=== PATIENT | female | born 1995 | race Caucasian/White ===

== ENCOUNTER 2017-10-02 22:39 | Emergency (ER) | payer OTHER ==
[2017-10-02 23:01] VITALS: PULSE 78
--- NOTE | 2017-10-02 23:39 | ED ---
General Adult HPI - General Chief complaint: Extremity Injury, Upper Stated complaint: Hand Injury, [facility] Time Seen by Provider: 10/02/17 23:02 Source: patient, RN notes reviewed Mode of arrival: ambulatory Limitations: no limitations - History of Present Illness Initial comments: 21 yo female presents to the ER with cc of right hand pain. Patient smashed her hand on a part trying to fix a part Her hand got smashed in his pain in the right hand. Worse today for the second and third finger. Patient has now some mild swelling. Pain with movement. Patient denies any other injury from the incident. Patient is moderately no radiation. Patient denies any recent fever, chills, shortness of breath, chest pain, back pain, abdominal pain, nausea vomiting, numbness or tingling, dysuria or hematuria, constipation or diarrhea, headaches or visual changes, or any other current symptoms. - Related Data Home Medications Medication Instructions Recorded Confirmed Levothyroxine Sodium [Synthroid] 100 mcg PO DAILY 10/02/17 10/02/17 Multivitamin [Multivitamins Adult 1 tab PO DAILY 10/02/17 10/02/17 Gummies] Allergies Allergy/AdvReac Type Severity Reaction Status Date / Time latex Allergy Rash/Hives Verified 10/02/17 23:16 Review of Systems ROS Statement: Those systems with pertinent positive or pertinent negative responses have been documented in the HPI. ROS Other: All systems not noted in ROS Statement are negative. Past Medical History Past Medical History: No Reported History History of Any Multi-Drug Resistant Organisms: None Reported Past Surgical History: No Surgical Hx Reported Past Psychological History: No Psychological Hx Reported Smoking Status: Never smoker Past Alcohol Use History: None Reported Past Drug Use History: None Reported General Exam - General Exam Comments Initial Comments: General: The patient is awake and alert, in no distress, and does not appear acutely ill. Neck: The neck is supple, there is no tenderness. Cardiovascular: There is a regular rate and rhythm. No murmur, rub or gallop is appreciated. Respiratory: Lungs are clear to auscultation, respirations are non-labored, breath sounds are equal. No wheezes, stridor, rales, or rhonchi. Musculoskeletal: Sensation intact with 2+ pulses throughout the right upper extremity. Full range motion of right wrist. Tenderness along the second and third metacarpals. Full range of motion. 5 out of 5 muscle strength testing. Neurological: CN II-XII intact, There are no obvious motor or sensory deficits. Coordination appears grossly intact. Speech is normal. Skin: Skin is warm and dry and no rashes or lesions are noted. Psychiatric: Normal mood and affect. Limitations: no limitations Course Vital Signs 10/02/17 22:58 Temperature 98.2 F Pulse Rate 78 Respiratory 18 Rate Blood Pressure 125/78 O2 Sat by Pulse 98 Oximetry Medical Decision Making - Medical Decision Making 21-year-old female presents emergency Department chief complaint of right hand pain after injury at work. Patient patient appears to right hand contusion. This time we discussed care. We discussed follow-up. We discussed return parameters all questions. Patient family stated they understood and are in agreement with management at this time. At this time they will be discharged home. - Radiology Data Radiology results: report reviewed, image reviewed Disposition Clinical Impression: Contusion of right hand Disposition: HOME SELF-CARE Condition: Stable Instructions: Contusion in Adults (ED) Additional Instructions: Please use medication as discussed. Please follow up with family doctor if symptoms have not improved over the next two days. Please return to the emergency room if your symptoms increase or worsen or for any other concerns. Referrals: Joesph Narvaez MD [Primary Care Provider] - 1-2 days Time of Disposition: 00:39
--- NOTE | 2017-10-03 00:30 | XR ---
EXAMINATION TYPE: XR hand complete RT DATE OF EXAM: 10/03/2017 COMPARISON: NONE HISTORY: Pain TECHNIQUE: 3 views FINDINGS: Metacarpals appear intact. I see no fracture nor dislocation. There are no erosions. IMPRESSION: Negative right hand exam
[2017-10-03 00:51] VITALS: BP 138/85; RESP 16; TEMP 97.9
== END 2017-10-03 00:45 | disposition home or self-care (01) ==
LOC: EC 22:39
DX: S60.221A Contusion of right hand, initial encounter (principal); Z91.040 Latex allergy status; Z79.899 Other long term (current) drug therapy; W22.09XA Striking against other stationary object, initial encounter; Y99.0 Civilian activity done for income or pay; Y92.69 Other specified industrial and construction area as the place of occurrence of the external cause
CPT/HCPCS: 99283

== ENCOUNTER → 2017-10-11 | Outpatient (CLI) | payer OTHER ==
--- NOTE | 2017-10-11 16:26 | XR ---
EXAMINATION TYPE: XR hand complete RT DATE OF EXAM: 10/11/2017 COMPARISON: NONE HISTORY: 22 year-old female right hand contusion second through third digits after injury TECHNIQUE: 3 views FINDINGS: No acute fracture, subluxation, or dislocation. Joint spaces throughout are maintained. IMPRESSION: No acute osseous abnormality seen.
== END | disposition home or self-care (01) ==
LOC: LABWHC1 15:37
PROVIDERS: ATTEND Emergency Medicine
DX: S60.221D Contusion of right hand, subsequent encounter (principal)
CPT/HCPCS: 81025

== ENCOUNTER → 2018-07-13 | Outpatient (CLI) | payer BC ==
--- NOTE | 2018-07-13 07:49 | US ---
EXAMINATION TYPE: US thyroid st tissue head/neck DATE OF EXAM: 07/13/2018 COMPARISON: NONE CLINICAL HISTORY: E03.9 HYPOTHYROIDISM. GLAND SIZE: Right Lobe: 3.7x1.6 x 1.3 cm Overall Parenchyma: homogenous Left Lobe: 3.8 x 1.2 x 1.2 cm Overall Parenchyma: heterogeneous slightly Isthmus Thickness: 0.4 cm NODULES RIGHT: # of nodules measured on right: 0 LEFT: # of nodules measured on left: 2 1. 0.7 X 0.6 x 0.4 cm isoechoic nodule at the mid pole with well-defined margins; . This nodule is round and shows no intranodular vascularity. Prior size: no prior 2. 0.3 X 0.4 x 0.6 cm isoechoic nodule at the lower pole with well-defined margins; This nodule is round and shows no intranodular vascularity. Prior size: no prior ISTHMUS: # of nodules measured in the isthmus: 0 Bilateral neck scanned, no evidence of lymphadenopathy. IMPRESSION: Nonspecific subcentimeter nodularity.
== END ==
LOC: RADUSWWP 06:54
PROVIDERS: ATTEND Family Medicine
DX: E03.9 Hypothyroidism, unspecified (principal)
CPT/HCPCS: 76536

== ENCOUNTER 2020-04-22 09:05 | Emergency (ER) | payer BC ==
--- NOTE | 2020-04-22 09:48 | ED ---
Abdominal Pain HPI - General Chief Complaint: Abdominal Pain Stated Complaint: right abd pain Time Seen by Provider: 04/22/20 09:12 Source: patient Mode of arrival: ambulatory Limitations: no limitations - History of Present Illness Initial Comments: 24-year-old female presented for right upper quadrant abdominal pain she states on and off for the past week she has had for upper quadrant abdominal pain she states initially began after eating beans are made with large. She states she has noticed slight increase in pain that has been more mild over the past 2 weeks when eating fatty foods. Patient denies any other specific aggravating factors. She denies any nausea vomiting or loose stools today as a bloody stools. Patient states the pain radiates along the flank towards the back. She denies any chest pain shortness of breath or pain with deep inspiration. Patient was concerned that this could possibly related to her gallbladder presented today when pain returned as been more persistent. Patient denies fevers, chills, general malaise. Patient has no additional complaints. - Related Data Home Medications Medication Instructions Recorded Confirmed Escitalopram [Lexapro] 20 mg PO DAILY 04/22/20 04/22/20 Hydrochlorothiazide 12.5 mg PO DAILY 04/22/20 04/22/20 Levothyroxine Sodium 88 mcg PO DAILY 04/22/20 04/22/20 Melatonin 5 mg PO HS PRN 04/22/20 04/22/20 Polyethylene Glycol 3350 [Miralax] 17 gm PO DAILY PRN 04/22/20 04/22/20 Allergies Allergy/AdvReac Type Severity Reaction Status Date / Time amoxicillin [From Augmentin] Allergy Rash/Hives Verified 04/22/20 10:52 latex Allergy Rash/Hives Verified 04/22/20 09:10 Review of Systems ROS Statement: Those systems with pertinent positive or pertinent negative responses have been documented in the HPI. ROS Other: All systems not noted in ROS Statement are negative. Past Medical History Past Medical History: No Reported History History of Any Multi-Drug Resistant Organisms: None Reported Past Surgical History: No Surgical Hx Reported Additional Past Surgical History / Comment(s): wisdom teeth Past Psychological History: No Psychological Hx Reported Smoking Status: Never smoker Past Alcohol Use History: Occasional Past Drug Use History: None Reported General Exam - General Exam Comments Initial Comments: General: The patient is awake and alert, in no distress, and does not appear acutely ill. Eye: Pupils are equal, round and reactive to light, extra-ocular movements are intact. No nystagmus. There is normal conjunctiva bilaterally. No signs of icterus. Cardiovascular: There is a regular rate and rhythm. No murmur, rub or gallop is appreciated. Respiratory: Lungs are clear to auscultation, respirations are non-labored, breath sounds are equal. No wheezes, stridor, rales, or rhonchi. Gastrointestinal: Soft, non-distended, some mild tenderness to palpation of the RUQ of the abdomen, remaining abdomen in nontender and is without masses or organomegaly noted. There is no rebound or guarding present Musculoskeletal: Normal ROM, no tenderness. Strength 5/5. Sensation intact. Radial pulses equal bilaterally 2+. Neurological: A&O x 3. CN II-XII intact grossly, There are no obvious motor or sensory deficits. Coordination appears grossly intact. Speech is normal. Skin: Skin is warm and dry and no rashes or lesions are noted. Psychiatric: Cooperative, appropriate mood & affect, normal judgment. Limitations: no limitations Course Vital Signs 04/22/20 04/22/20 04/22/20 09:06 10:41 11:30 Temperature 98.4 F Pulse Rate 67 64 57 L Respiratory 18 16 16 Rate Blood Pressure 142/88 120/85 118/79 O2 Sat by Pulse 96 97 99 Oximetry Medical Decision Making - Medical Decision Making 24-year-old female presenting today for chief complaint of right upper quadrant abdominal pain. NEGATIVE FOR ACUTE CHOLECYSTITIS OR CHOLELITHIASIS. PATIENT'S LABORATORY STUDIES STABLE NO ACUTE FINDINGS NO SIGNS OF PANCREATITIS. CT OBTAINED TO RULE OUT KIDNEY STONE THERE IS blood in urine although pt states she frequently spots. There was noted pelvic mass. US pelvic revealed what appeared to be most likely physiological status. Patient has no lower pelvic pain at this time feel patient is stable for discharge or GI follow-up she may need HIDA scan to ensure, but her spelled function properly other baer at this time and do not feel patient has an acute abdomen patient is to return if there is increasing pain or new symptoms. Patient is aware of these return parameters as well as the importance of follow-up for cyst as well as with gastroenterology for the right upper quadrant pain. Discussed case with Dr. Barba who is agreeable to care plan and discharge. - Lab Data Result diagrams: 04/22/20:50 04/22/20 10:14 Lab Results 04/22/20 04/22/20 04/22/20 Range/Units 09:20 09:20 09:50 WBC 7.9 (3.8-10.6) k/uL RBC 4.66 (3.80-5.40) m/uL Hgb 13.7 (11.4-16.0) gm/dL Hct 42.4 (34.0-46.0) % MCV 91.0 (80.0-100.0) fL MCH 29.4 (25.0-35.0) pg MCHC 32.4 (31.0-37.0) g/dL RDW 12.5 (11.5-15.5) % Plt Count 426 (150-450) k/uL Neutrophils % 71 % Lymphocytes % 19 % Monocytes % 5 % Eosinophils % 4 % Basophils % 1 % Neutrophils # 5.6 (1.3-7.7) k/uL Lymphocytes # 1.5 (1.0-4.8) k/uL Monocytes # 0.4 (0-1.0) k/uL Eosinophils # 0.3 (0-0.7) k/uL Basophils # 0.1 (0-0.2) k/uL Sodium (137-145) mmol/L Potassium (3.5-5.1) mmol/L Chloride (98-107) mmol/L Carbon Dioxide (22-30) mmol/L Anion Gap mmol/L BUN (7-17) mg/dL Creatinine (0.52-1.04) mg/dL Est GFR (CKD-EPI)AfAm (>60 ml/min/1.73 sqM) Est GFR (CKD-EPI)NonAf (>60 ml/min/1.73 sqM) Glucose (74-99) mg/dL Calcium (8.4-10.2) mg/dL Total Bilirubin (0.2-1.3) mg/dL AST (14-36) U/L ALT (4-34) U/L Alkaline Phosphatase (38-126) U/L Total Protein (6.3-8.2) g/dL Albumin (3.5-5.0) g/dL Amylase (30-110) U/L Lipase (23-300) U/L Urine Color Yellow Urine Appearance Clear (Clear) Urine pH 5.5 (5.0-8.0) Ur Specific [place] 1.030 (1.001-1.035) Urine Protein Negative (Negative) Urine Glucose (UA) Negative (Negative) Urine Ketones Negative (Negative) Urine Blood Moderate H (Negative) Urine Nitrite Negative (Negative) Urine Bilirubin Negative (Negative) Urine Urobilinogen <2.0 (<2.0) mg/dL Ur Leukocyte Esterase Trace H (Negative) Urine RBC 1 (0-5) /hpf Urine WBC 3 (0-5) /hpf Ur Squamous Epith Cells 3 (0-4) /hpf Urine Bacteria Occasional H (None) /hpf Urine Mucus Moderate H (None) /hpf Urine HCG, Qual Not Detected (Not Detectd) 04/22/20 Range/Units 10:14 WBC (3.8-10.6) k/uL RBC (3.80-5.40) m/uL Hgb (11.4-16.0) gm/dL Hct (34.0-46.0) % MCV (80.0-100.0) fL MCH (25.0-35.0) pg MCHC (31.0-37.0) g/dL RDW (11.5-15.5) % Plt Count (150-450) k/uL Neutrophils % % Lymphocytes % % Monocytes % % Eosinophils % % Basophils % % Neutrophils # (1.3-7.7) k/uL Lymphocytes # (1.0-4.8) k/uL Monocytes # (0-1.0) k/uL Eosinophils # (0-0.7) k/uL Basophils # (0-0.2) k/uL Sodium 139 (137-145) mmol/L Potassium 4.5 (3.5-5.1) mmol/L Chloride 108 H (98-107) mmol/L Carbon Dioxide 24 (22-30) mmol/L Anion Gap 7 mmol/L BUN 12 (7-17) mg/dL Creatinine 0.53 (0.52-1.04) mg/dL Est GFR (CKD-EPI)AfAm >90 (>60 ml/min/1.73 sqM) Est GFR (CKD-EPI)NonAf >90 (>60 ml/min/1.73 sqM) Glucose 102 H (74-99) mg/dL Calcium 9.4 (8.4-10.2) mg/dL Total Bilirubin 0.4 (0.2-1.3) mg/dL AST 26 (14-36) U/L ALT 21 (4-34) U/L Alkaline Phosphatase 45 (38-126) U/L Total Protein 7.2 (6.3-8.2) g/dL Albumin 4.1 (3.5-5.0) g/dL Amylase 52 (30-110) U/L Lipase 50 (23-300) U/L Urine Color Urine Appearance (Clear) Urine pH (5.0-8.0) Ur Specific [place] (1.001-1.035) Urine Protein (Negative) Urine Glucose (UA) (Negative) Urine Ketones (Negative) Urine Blood (Negative) Urine Nitrite (Negative) Urine Bilirubin (Negative) Urine Urobilinogen (<2.0) mg/dL Ur Leukocyte Esterase (Negative) Urine RBC (0-5) /hpf Urine WBC (0-5) /hpf Ur Squamous Epith Cells (0-4) /hpf Urine Bacteria (None) /hpf Urine Mucus (None) /hpf Urine HCG, Qual (Not Detectd) Disposition Clinical Impression: Upper abdominal pain, Ovarian cyst Disposition: HOME SELF-CARE Condition: Good Instructions (If sedation given, give patient instructions): Ovarian Cyst (ED), Abdominal Pain (ED) Additional Instructions: Please use medication as discussed. Please follow-up with family doctor in the next 2 days, recommend obgyn follow-up for the ovarian cyst. Please return to emergency room if the symptoms increase or worsen or for any other concerns. Is patient prescribed a controlled substance at d/c from ED?: No Referrals: Alberto Caraballo MD [Primary Care Provider] - 1-2 days Shell Cantrell MD [STAFF PHYSICIAN] - 1-2 days Time of Disposition: 12:07
[2020-04-22 09:52] LABS: Appearance,Urine Clear (Clear); Bacteria,Urine Occasional /hpf; Bilirubin,Urine Negative (Negative); Blood,Urine Moderate (Negative); Color,Urine Yellow; Glucose,Urine (UA) Negative (Negative); Ketones,Urine Negative (Negative); Leukocyte Esterase,Urine Trace (Negative); Mucus,Urine Moderate /hpf; Nitrite,Urine Negative (Negative); PH, Urine 5.5 (5.0-8.0); Protein,Urine Negative (Negative); RBC,Urine 1 /hpf (0-5); Squamous Epithelial Cell,Urine 3 /hpf (0-4); Urobilinogen,Urine <2.0 mg/dL (<2.0); WBC,Urine 3 /hpf (0-5)
[2020-04-22 10:01] LABS: Basophils # (A) 0.1 k/uL (0-0.2); Basophils % (A) 1 %; Eosinophils # (A) 0.3 k/uL (0-0.7); Eosinophils % (A) 4 %; HCT 42.4 % (34.0-46.0); HGB 13.7 gm/dL (11.4-16.0); Lymphocytes # (A) 1.5 k/uL (1.0-4.8); Lymphocytes % (A) 19 %; MCH 29.4 pg (25.0-35.0); MCHC 32.4 g/dL (31.0-37.0); Monocytes # (A) 0.4 k/uL (0-1.0); Monocytes % (A) 5 %; Neutrophils # (A) 5.6 k/uL (1.3-7.7); Neutrophils % (A) 71 %; Platelet Count 426 k/uL (150-450); RBC 4.66 m/uL (3.80-5.40); RDW 12.5 % (11.5-15.5); WBC 7.9 k/uL (3.8-10.6)
--- NOTE | 2020-04-22 10:38 | US ---
EXAMINATION TYPE: US abdomen limited DATE OF EXAM: 04/22/2020 COMPARISON: NONE CLINICAL HISTORY: RUQ pain. Intermittent RUQ pain x 1 month EXAM MEASUREMENTS: Liver Length: 15.4 cm Gallbladder Wall: 0.1 cm CBD: 0.3 cm Right Kidney: 9.5 x 4.4 x 4.2 cm Pancreas: visualized portions wnl, limited by overlying midline bowel gas Liver: wnl Gallbladder: wnl Evidence for sonographic Valentin's sign: no CBD: visualized portions wnl, limited by overlying bowel gas Right Kidney: wnl IMPRESSION: No sonographic evidence of cholelithiasis nor acute cholecystitis.
[2020-04-22 10:41] LABS: ALT 21 U/L (4-34); African American GFR (CKD) >90 (>60 ml/min/1.73 sqM); Albumin 4.1 g/dL (3.5-5.0); Amylase 52 U/L (30-110); Anion Gap 7 mmol/L; Blood Urea Nitrogen 12 mg/dL (7-17); Calcium 9.4 mg/dL (8.4-10.2); Carbon Dioxide 24 mmol/L (22-30); Chloride 108 mmol/L (98-107); Glucose 102 mg/dL (74-99); Non-African American GFR(CKD) >90 (>60 ml/min/1.73 sqM); Sodium 139 mmol/L (137-145); Total Bilirubin 0.4 mg/dL (0.2-1.3); Total Protein 7.2 g/dL (6.3-8.2)
[2020-04-22 10:42] VITALS: RESP 16
[2020-04-22 10:44] LABS: Potassium 4.5 mmol/L (3.5-5.1)
[2020-04-22 10:45] LABS: AST 26 U/L (14-36); Alkaline Phosphatase 45 U/L (38-126)
--- NOTE | 2020-04-22 11:13 | CT ---
EXAMINATION TYPE: CT abdomen pelvis wo con DATE OF EXAM: 04/22/2020 COMPARISON: Ultrasound 04/22/2020 HISTORY: Right flank pain. CT DLP: 613.3 mGycm Automated exposure control for dose reduction was used. TECHNIQUE: Helical acquisition of images was performed from the lung bases through the pelvis. FINDINGS: LUNG BASES: No significant abnormality is appreciated. LIVER/GB: No significant abnormality is appreciated. PANCREAS: No significant abnormality is seen. SPLEEN: No significant abnormality is seen. ADRENALS: No significant abnormality is seen. KIDNEYS: No significant abnormality is seen. ADENOPATHY: None visualized. OSSEOUS STRUCTURES: No significant abnormality is seen. BOWEL: Nonspecific abdomen. Appendix normal.. OTHER: There is a 4.3 cm cystic mass in the right adnexa correlate with pelvic ultrasound. IMPRESSION: 1. There is a 4.3 cm cystic mass in the right adnexa correlate with pelvic ultrasound.
--- NOTE | 2020-04-22 12:03 | US ---
EXAMINATION TYPE: US pelvic complete DATE OF EXAM: 04/22/2020 COMPARISON: 04/22/2020 CT CLINICAL HISTORY: pelvic mass. TECHNIQUE: Transabdominal (TA). Date of LMP: Patient has arm implant control, no menses occasional spotting EXAM MEASUREMENTS: Uterus: 5.5 x 3.2 x 3.3 cm Endometrial Stripe: 0.3 cm Right Ovary: 4.1 x 3.1 x 2.7 cm Left Ovary: 2.6x 1.5 x 1.8 cm 1. Uterus: Anteverted wnl 2. Endometrium: wnl 3. Right Ovary: 3.1 x 2.2 x 1.9cm simple appearing cyst 4. Left Ovary: wnl 5. Bilateral Adnexa: wnl 6. Posterior cul-de-sac: wnl IMPRESSION: Simple appearing 3.1 cm right ovarian cyst, likely physiologic. Endometrial thickening as the endometrium measures only 0.3 cm.
[2020-04-22 13:16] VITALS: BP 122/99; PULSE 72; TEMP 98.2
== END 2020-04-22 12:40 | disposition home or self-care (01) ==
LOC: EC 09:05
DX: R10.11 Right upper quadrant pain (principal); N83.201 Unspecified ovarian cyst, right side; R31.9 Hematuria, unspecified; Z88.0 Allergy status to penicillin; Z91.040 Latex allergy status
CPT/HCPCS: 36415; 74176; 76705; 76856; 80053; 81001; 81025; 82150; 83690; 85025; 99284

== ENCOUNTER → 2020-05-23 | Day surgery (SDC) | payer BC ==
[~2020-05-23] MED LIST: LACTATED RINGERS 1,000 ML IV SCH; LIDOCAINE 1% (10MG/ML) FOR IV START INTRADERMA PRN; LIDOCAINE 1% INJ 10MG/ML (20 ML MDV) ONE; PROPOFOL 10 MG/ML 20 ML VIAL IV ONE
[2020-05-23 09:34] VITALS: BMI 32.0
[2020-05-23 10:48] VITALS: TEMP 97.9
--- NOTE | 2020-05-23 12:12 | P.PCN ---
Date of Procedure: 05/23/20 Procedure(s) Performed: BRIEF HISTORY: Patient is a 24-year-old, pleasant, female scheduled for an upper endoscopy as a part of evaluation of epigastric and right upper quadrant abdominal pain for the last 2 months duration.. PROCEDURE PERFORMED: Esophagogastroduodenoscopy with biopsy. PREOPERATIVE DIAGNOSIS: Epigastric/right upper quadrant abdominal pain. IV sedation per anesthesia. PROCEDURE: After informed consent was obtained, the patient was brought into the endoscopy unit. IV sedation was administered by Anesthesia under continuous monitoring. Initially the Olympus GIF-140 video endoscope was inserted into the mouth. Esophagus intubated without any difficulty. It was gradually advanced into the stomach and duodenum and carefully examined. The bulb and the second part of the duodenum appeared normal. The scope at this time was withdrawn to the stomach, adequately insufflated with air, and upon careful examination, mucosa of the antrum, gastritis and biopsies were done from this area. The body, cardia and the fundus appeared normal. The scope was then withdrawn into the esophagus. The GE junction was located at 39 cm from the incisors. The esophagus appeared normal. There were no erosions or ulcerations seen, biopsies were done from the esophagus and the patient tolerated the procedure well. IMPRESSION: 1. Mild antral gastritis. 2. No evidence of esophagitis or peptic ulcer disease. RECOMMENDATIONS: The findings of this examination were discussed with the patient or less her family. She will continue with omeprazole 20 mg daily and follow antireflux measures. She'll be seen in office in 2 weeks..
[2020-05-23 12:42] VITALS: BP 126/91; PULSE 76; RESP 17
== END ==
LOC: ORWHC2ENDO 10:14
PROVIDERS: ATTEND Internal Medicine Gastroenterology
DX: K29.50 Unspecified chronic gastritis without bleeding (principal); K21.0 Gastro-esophageal reflux disease with esophagitis; Z88.1 Allergy status to other antibiotic agents; Z91.040 Latex allergy status; I10 Essential (primary) hypertension; E07.9 Disorder of thyroid, unspecified; Z79.890 Hormone replacement therapy; Z79.3 Long term (current) use of hormonal contraceptives; Z79.899 Other long term (current) drug therapy
CPT/HCPCS: 81025; 88305; 43239; J2001; J2704

== ENCOUNTER 2021-06-20 14:04 | Emergency (ER) | payer OTHER, BC ==
[2021-06-20 14:12] VITALS: RESP 18; TEMP 98.7
[2021-06-20] MEDS ORDERED: SODIUM CHLORIDE 0.9% 1,000 ML IV STA (14:33)
[2021-06-20] MEDS ORDERED: KETOROLAC 15 MG/ML 1 ML VIAL IVP STA (14:35)
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
[2021-06-20 15:29] LABS: Appearance,Urine Clear (Clear); Basophils # (A) 0.1 k/uL (0-0.2); Basophils % (A) 0 %; Bilirubin,Urine Negative (Negative); Blood,Urine Negative (Negative); Color,Urine Light Yellow; Eosinophils # (A) 0.4 k/uL (0-0.7); Eosinophils % (A) 3 %; Glucose,Urine (UA) Negative (Negative); HCT 45.4 % (34.0-46.0); HGB 15.1 gm/dL (11.4-16.0); Ketones,Urine Negative (Negative); Leukocyte Esterase,Urine Negative (Negative); Lymphocytes # (A) 1.6 k/uL (1.0-4.8); Lymphocytes % (A) 11 %; MCH 31.2 pg (25.0-35.0); MCHC 33.3 g/dL (31.0-37.0); MCV 93.7 fL (80.0-100.0); Mean Platelet Volume 6.7; Monocytes # (A) 0.8 k/uL (0-1.0); Monocytes % (A) 5 %; Neutrophils # (A) 12.1 k/uL (1.3-7.7); Neutrophils % (A) 80 %; Nitrite,Urine Negative (Negative); PH, Urine 7.5 (5.0-8.0); Platelet Count 414 k/uL (150-450); Protein,Urine Negative (Negative); RBC 4.85 m/uL (3.80-5.40); Specific Gravity,Urine 1.009 (1.001-1.035); Urobilinogen,Urine <2.0 mg/dL (<2.0); WBC 15.2 k/uL (3.8-10.6)
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
[2021-06-20 15:40] LABS: ALT 23 U/L (4-34); AST 31 U/L (14-36); African American GFR (CKD) >90 (>60 ml/min/1.73 sqM); Albumin 4.2 g/dL (3.5-5.0); Alcohol <10 mg/dL; Alkaline Phosphatase 56 U/L (38-126); Anion Gap 8 mmol/L; Blood Urea Nitrogen 9 mg/dL (7-17); Calcium 9.8 mg/dL (8.4-10.2); Carbon Dioxide 22 mmol/L (22-30); Chloride 107 mmol/L (98-107); Glucose 87 mg/dL (74-99); Non-African American GFR(CKD) >90 (>60 ml/min/1.73 sqM); Potassium 4.4 mmol/L (3.5-5.1); Sodium 137 mmol/L (137-145); Total Bilirubin 0.3 mg/dL (0.2-1.3); Total Protein 6.7 g/dL (6.3-8.2)
[2021-06-20 15:45] LABS: Amphetamine Screen,Urine Not Detected (NotDetected); Barbiturate Screen,Urine Not Detected (NotDetected); Benzodiazepines Screen,Urine Not Detected (NotDetected); Cocaine Screen,Urine Not Detected (NotDetected); Methadone Screen, Urine Not Detected (NotDetected); Opiate Screen,Urine Not Detected (NotDetected); Oxycodone Screen, Urine Not Detected (NotDetected); Phencyclidine Screen,Urine Not Detected (NotDetected); Tricyclic Antidepressant,Urine Not Detected (NotDetected); Urn Cannabinoid Scrn Not Detected (NotDetected)
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
[2021-06-20 17:31] VITALS: BP 120/81; PULSE 73
== END 2021-06-20 17:38 | disposition home or self-care (01) ==
LOC: EC 14:04
DX: M25.511 Pain in right shoulder (principal); I10 Essential (primary) hypertension; K21.9 Gastro-esophageal reflux disease without esophagitis; Z79.890 Hormone replacement therapy; Z79.899 Other long term (current) drug therapy; V43.52XA Car driver injured in collision with other type car in traffic accident, initial encounter; Y92.410 Unspecified street and highway as the place of occurrence of the external cause
CPT/HCPCS: 36415; 93005; 80053; 84484; 85025; 81003; 81025; 80306; 80320; 73030; 71045; 72125; 70450; 96374; 96361; 99285; J1885

== ENCOUNTER → 2023-02-23 | Outpatient (CLI) | payer BC ==
--- NOTE | 2023-02-23 11:48 | XR ---
EXAMINATION TYPE: XR abdomen 2V DATE OF EXAM: 02/23/2023 HISTORY: Abdominal pain Comparison: CT abdomen and pelvis 04/22/2020 Technique: Frontal view of the abdomen is obtained with 3 radiographs. Findings: No unusual calcifications identified. Agsm-rs-fzsyhtgd amount of stool is present throughout the colo n. No evidence for obstruction. No acute osseous abnormality. IMPRESSION: Nonobstructive bowel gas pattern. Mild to moderate colonic stool burden. Correlate for constipation.
== END | disposition home or self-care (01) ==
LOC: RADXRYALE 11:23
PROVIDERS: ATTEND Nurse Practitioner Family
DX: R10.84 Generalized abdominal pain (principal); R19.5 Other fecal abnormalities
CPT/HCPCS: 74019

== ENCOUNTER → 2024-08-16 | Outpatient (CLI) | payer BC ==
[2024-08-16 15:28] LABS: Basophils # (A) 0.09 X 10*3/uL (0.00-0.10); Basophils % (A) 0.7 %; Eosinophils % (A) 5.4 %; HCT 46.3 % (37.2-46.3); HGB 15.5 g/dL (12.0-15.0); Lymphocytes # (A) 2.65 X 10*3/uL (0.90-5.00); Lymphocytes % (A) 20.5 %; MCH 30.5 pg (27.0-32.0); MCHC 33.5 g/dL (32.0-37.0); Mean Platelet Volume 9.8 FL (9.5-12.2); Monocytes # (A) 0.74 X 10*3/uL (0.20-1.00); Monocytes % (A) 5.7 %; NRBC Per 100 WBC 0 X 10*3/uL (0.00-0.01); Neutrophils # (A) 8.67 X 10*3/uL (1.80-7.70); Platelet Count 416 X 10*3/uL (140-440); RBC 5.09 X 10*6/uL (4.10-5.20); RDW 12.5 % (11.5-14.5); WBC 12.94 X 10*3/uL (4.50-10.00)
[2024-08-16 16:20] LABS: BUN/Creat Ratio 9.38 Ratio (12.00-20.00); Blood Urea Nitrogen 7.5 mg/dL (9.0-27.0); Carbon Dioxide 24.8 mmol/L (21.6-31.8); Chloride 104 mmol/L (96-109); Glucose 99 mg/dL (70-110); Potassium 4.9 mmol/L (3.5-5.5); Sodium 140 mmol/L (135-145)
[2024-08-16 16:21] LABS: ALT 38 U/L (8-44); AST 23 U/L (13-35); Albumin 4.8 g/dL (3.8-4.9); Albumin/Globulin Ratio 1.71 Ratio (1.60-3.17); Alkaline Phosphatase 75 U/L (41-126); Calcium 10.1 mg/dL (8.7-10.3); Globulin 2.8 g/dL (1.6-3.3); Total Bilirubin 0.3 mg/dL (0.3-1.2); Total Protein 7.6 g/dL (6.2-8.2)
[2024-08-16 18:14] LABS: Thyroid Peroxidase Antibodies 9.4 U/mL (0.0-33.0)
[2024-08-16 21:29] LABS: Gliadin AB IgA, Deaminated Negative (Negative); Gliadin AB IgA, Unit <0.5 U/mL; Gliadin AB IgG, Deaminated Negative (Negative); Gliadin AB IgG, Unit 1.4 U/mL
== END | disposition home or self-care (01) ==
LOC: LABWHC1 12:11
PROVIDERS: ATTEND Pediatrics
DX: E01.0 Iodine-deficiency related diffuse (endemic) goiter (principal); R10.84 Generalized abdominal pain
CPT/HCPCS: 36415; 80053; 83516; 84432; 84443; 85025; 86376

== ENCOUNTER → 2024-08-16 | Outpatient (CLI) | payer BC ==
--- NOTE | 2024-08-16 13:14 | XR ---
EXAMINATION TYPE: XR abdomen 2V DATE OF EXAM: 08/16/2024 HISTORY: Pain. Technique: 2 views of the abdomen are submitted. Comparison: 02/23/2023 Findings: There is no convincing evidence of pneumoperitoneum. The Bowel gas pattern is nonspecific and nonobstructive. No sizable air-fluid levels are seen. No mass effects are noted. Mild fecal stasis right hemicolon. No renal calcifications are identified. IMPRESSION: 1. Nonspecific nonobstructive bowel gas pattern [facility], , 08/16/2024 1:12 PM
== END | disposition home or self-care (01) ==
LOC: RADXRMAIN 12:39
PROVIDERS: ATTEND Pediatrics
DX: K59.00 Constipation, unspecified (principal)
CPT/HCPCS: 74019

== ENCOUNTER → 2024-10-08 | Outpatient (CLI) | payer BC ==
[2024-10-08 15:31] VITALS: BP 149/92; PULSE 99; RESP 16; TEMP 98.5
--- NOTE | 2024-10-08 15:48 | P.SLEEP ---
History of Present Illness DATE: 10/08/2024 CONSULTATION/NEW PATIENT EVALUATION HISTORY OF PRESENT ILLNESS/SLEEP-WAKE EVALUATION: 29-year-old lady had been evaluated in the sleep center for possible obstructive sleep apnea hypopnea syndrome. SLEEP SCHEDULE: Usually sleep schedule from 711 PM to 46 AM on weekdays and from 81 AM until 711 AM on weekend. FALLING ASLEEP: Patient does have problems with falling asleep. DURING SLEEP: Patient sleeps in different positions with loud snoring and witnessed episodes of stop breathing during the sleep. Patient may wake up from sleep every hour with episodes of panic attacks, sweating. No history of hypnogogical hallucinations, sleep paralysis, or cataplexy. DURING THE DAY/WAKE STATE: In the morning patient wake up tired, has difficulties to pay attention, positive history of episodes of anxiety. [place] sleepiness scale is significantly increased to 13. Usually patient does not take naps. PAST MEDICAL HISTORY: Hypertension, hyperlipidemia. PAST SURGICAL HISTORY: Tonsillectomy, adenoidectomy. MEDICATIONS: Reviewed please see below. SOCIAL HISTORY: Please see below. FAMILY HISTORY: Please see below. REVIEW OF SYSTEMS: Loud snoring, multiple awakenings from sleep, sleepiness during the day. No fevers. No double vision. No recent chest pain. No shortness of breath. No abdominal pain. No bleeding episodes. No blood in urine. No seizure episodes. PHYSICAL EXAMINATION: GENERAL: A pleasant patient without any distress. VITAL SIGNS: Please see below, weight 212 pounds, BMI 37.5. HEENT: PERRLA, EOMI. Evaluation of oropharynx showed tongue protrudes midline, low position of soft palate Mallampati 34. NECK: Supple. No JVD. Thyroid is not palpable. 16 inches in circumference. LUNGS: Clear to percussion and to auscultation. Good air exchange. No wheezing or rhonchi. HEART: S1, S2 regular. No murmurs, gallops or rubs. ABDOMEN: Soft and nontender. Bowel sounds are present. No organomegaly appreciated. EXTREMITIES: No clubbing or cyanosis. SCRAPER HAND: Awake, alert, and oriented x3. Cranial nerves 2 to 7 intact. There is no fasciculation or atrophy noted. No focal deficits observed. ASSESSMENT: 1. Loud snoring, witnessed episodes of stop breathing during the sleep, low position of soft palate Mallampati 34, wide neck 16 inches in circumference, sleepiness with [place] Sleepiness Scale increased to 13. Obstructive sleep apnea hypopnea syndrome. 2. Obesity, BMI 37.5. 3. Significant amount of movements during the sleep, possibly periodic limb movements. 4. Hypertension. 5 hyperlipidemia. 6 . Status post tonsillectomy and adenoidectomy. PLAN: 1. Home sleep apnea test for evaluation of patient's breathing during sleep. 2. Following plan after reading sleep study. 3. Preferable position during sleep on the side. 4. No driving if patient feels any sleepiness. Patient is aware of civil and criminal liability for unsafe driving. 5. Sleep hygiene with regular sleep time for at least 7.5-8 hours. 6. Watching and losing weight. Thank you very much for referring this patient for consultation. Sincerely, Hayder Magallanes MD, PhD, FAASM. Diplomat of [place] [employer], Sleep Medicine Board by [place] [employer] [place] [employer] Order Checker Packer Processer of [facility] [place] cc: Marc Holloway MD, Selina Cook PA-C Past Medical History Past Medical History: No Reported History, GERD/Reflux, Hypertension, Thyroid Disorder Additional Past Medical History / Comment(s): PAIN TO GALLBLADDER AREA History of Any Multi-Drug Resistant Organisms: None Reported Past Surgical History: Adenoidectomy, Tonsillectomy Additional Past Surgical History / Comment(s): wisdom teeth Past Anesthesia/Blood Transfusion Reactions: No Reported Reaction Past Psychological History: Anxiety Smoking Status: Never smoker Past Alcohol Use History: Occasional Past Drug Use History: None Reported - Past Family History Mother Family Medical History: No Reported History Medications and Allergies Home Medications Medication Instructions Recorded Confirmed Type polyethylene glycoL 3350 [Miralax] 17 gm PO DAILY PRN 04/22/20 10/08/24 History levonorgestreL [Kyleena (IUD)] 10/08/24 History Allergies Allergy/AdvReac Type Severity Reaction Status Date / Time amoxicillin [From Augmentin] Allergy Rash/Hives Verified 05/23/20 10:48 latex Allergy Rash/Hives Verified 05/23/20 10:48 Physical Exam Vitals: Vital Signs Temp Pulse Resp BP Pulse Ox 10/08/24 15:30 98.5 F 99 16 149/92 97 Intake and Output 10/08/24 10/08/2424 06:59 14:59 22:59 Other: Weight 96.162 kg Sleep Note - Sleep Data ESS Total: 13 - Sleep Note Sleep Note: Temperature: 98.5 F Pulse Rate: 99 Respiratory Rate: 16 Blood Pressure: 149/92 SpO2: 97 Height: 5 ft 3 in Weight: 96.162 kg BMI: Neck Circumference: 16
== END ==
LOC: 3 N SLEEP 14:14
PROVIDERS: ATTEND Internal Medicine
DX: G47.33 Obstructive sleep apnea (adult) (pediatric) (principal); E66.9 Obesity, unspecified; I10 Essential (primary) hypertension; E78.5 Hyperlipidemia, unspecified; Z98.890 Other specified postprocedural states; Z90.89 Acquired absence of other organs; Z68.37 Body mass index [BMI] 37.0-37.9, adult; Z88.0 Allergy status to penicillin; Z91.040 Latex allergy status
CPT/HCPCS: 99211

== ENCOUNTER → 2024-10-18 | Outpatient (CLI) | payer BC ==
--- NOTE | 2024-10-24 11:12 | P.PCN ---
Description of Procedure: CLINICAL: A home sleep apnea test has been done for confirmation of possible obstructive sleep apnea-hypopnea syndrome. DESCRIPTION OF PROCEDURE: RESULTS: Recording time was 7 hours 57 minutes. Evaluation time was 7 hours 45 minutes. Evaluation time is sufficient for making conclusion about results of the test. Raw data of sleep recording has been reviewed and is adequate. Respiratory channel showed 0 apneas and 33 hypopneas. Apnea-hypopnea index was 4.3 per hour. Pulse rate in the range between minimum 53, maximum 121, average 70 by computer calculation. No significant oxygen desaturation. IMPRESSION: 1. Very minimal abnormalities of respiration, in normal range by today's criteria's, although home sleep apnea test may underestimate severity of sleep apnea. 2. Snoring have been documented. 3. Patient presents with symptoms of significant excessive daytime sleepiness with [place] Sleepiness Scale increased to 13 Please see other impressions from consultation. PLAN: 1. I will see patient for follow-up visit to discuss results of the test and recommendations. The patient will continue symptoms of excessive daytime sleepiness we will proceed with multiple sleep latency test. 2. Sleep hygiene with regular time in bed for at least 8 hours. 3. Watching weight. 4. No driving if feeling any sleepiness. Thank you very much for allowing me to participate in the management of your patient. Sincerely, Hayder Magallanes MD, PhD, FAASM Diplomat of [place] [employer] Sleep Medicine Board of [place] [employer] Clerical Assigner of [facility] [place] cc: Marc Holloway MD, Selina Cook PA-C
== END ==
LOC: 3 N SLEEP 16:42
PROVIDERS: ATTEND Internal Medicine
DX: G47.30 Sleep apnea, unspecified (principal); R06.83 Snoring; Z88.0 Allergy status to penicillin; Z91.041 Radiographic dye allergy status

== ENCOUNTER → 2024-12-06 | Outpatient (CLI) | payer OTHER ==
[2024-12-06 16:17] VITALS: BP 133/85; PULSE 92; RESP 16; TEMP 97.9
--- NOTE | 2024-12-06 16:36 | P.PROGSL ---
Subjective DATE: 12/06/2021 FOLLOW UP VISIT. Patient returned to sleep center for follow-up visit to discuss results of sleep study and following plan. I discussed results of home sleep apnea test with patient in details. Apnea hypopnea index was 4.3, which is in normal range, but it could be underestimated because we do not know exactly how long patient slept during the home sleep apnea test. Patient continued to have symptoms of excessive daytime sleepiness [place] Sleepiness Scale today again increased to 13 and that include sleepiness while driving. I discussed with patient in details necessity to proceed with multiple sleep latency test. MEDICATIONS: Please see below During physical exam: GENERAL: A pleasant patient without any distress. VITAL SIGNS: Please see below, weight 212 pounds BMI 39.5. HEENT: PERRLA, EOMI. NECK: Supple. No JVD. LUNGS: Clear to percussion and to auscultation. Good air exchange. No wheezing or rhonchi. HEART: S1, S2 regular. ABDOMEN: Soft and nontender. EXTREMITIES: No clubbing or cyanosis. NUCLEAR WORKER TECHNICIAN: Awake, alert, and oriented x3. No focal deficit. Impressions: 1. Excessive daytime sleepiness, [place] Sleepiness Scale increased to 13. Patient continued to feel sleepiness including sleepiness while driving. Differential diagnosis include hypersomnia and narcolepsy type II. 2. Home sleep apnea test documented snoring, apnea hypopnea index 4.3, which is normal by today's criteria's. 3. Hypertension. 4. Obesity. 5. Significant amount of movements during the sleep, possibly periodic limb mov ements. 6. Hyperlipidemia. 7. Status post tonsillectomy and adenoidectomy. Plan: 1. Polysomnography with following multiple sleep latency test to recheck patient breathing during the sleep to exclude possibility of false negative results of home sleep apnea test, to check for possible periodic limb movements and for objective evaluation symptoms of excessive daytime sleepiness with differential diagnosis with possible hypersomnia and narcolepsy type II. 2. Sleep hygiene with regular time in bed for at least 8 hours. 3. Following plan after reading sleep studies. 4. Precautions related to driving. No driving if feel any sleepiness. Patient is aware about civil and criminal liability for unsafe driving, promised to follow recommendations. 5. Watching and losing weight. Thank you very much for allowing me to participate in the management of your patient. Hayder Magallanes MD, PhD, FAASM. Diplomat of [place] [employer], Sleep Medicine Board by [place] [employer] Special Investigation Unit Investigator of [facility] [place] cc: Alberto Lange MD, Dee Zhang Objective - Vital Signs Vital Signs: Vital Signs Temp 97.9 F 12/06/24 16:16 Pulse 92 12/06/24 16:16 Resp 16 12/06/24 16:16 BP 133/85 12/06/24 16:16 Pulse Ox 98 12/06/24 16:16 FiO2 Home Medications: Home Medications Medication Instructions Recorded Confirmed Type polyethylene glycoL 3350 [Miralax] 17 gm PO DAILY PRN 04/22/20 10/08/24 History levonorgestreL [Kyleena (IUD)] 10/08/24 History
== END ==
LOC: 3 N SLEEP 16:06
PROVIDERS: ATTEND Internal Medicine
DX: R40.0 Somnolence (principal); G47.10 Hypersomnia, unspecified; G47.419 Narcolepsy without cataplexy; I10 Essential (primary) hypertension; E66.9 Obesity, unspecified; Z68.39 Body mass index [BMI] 39.0-39.9, adult; Z88.0 Allergy status to penicillin; Z91.040 Latex allergy status
CPT/HCPCS: 99212

== ENCOUNTER 2025-01-08 19:30 | Outpatient (CLI) | payer OTHER ==
--- NOTE | 2025-01-10 13:58 | P.PCN ---
Description of Procedure: POLYSOMNOGRAPHY REPORT PROCEDURE(S)/DATE(S): Polysomnography 01/08/2025 CLINICAL: Patient has been seen in the sleep center for evaluation of obstructive sleep apnea-hypopnea syndrome. Please see my consultation. Sleep study has been done for evaluation of patient breathing during the sleep. PROCEDURE: The standard montage for clinical polysomnography included the electroencephalogram, the electrooculogram, the mentalis surface electromyography and Lead II cardiography. The respiratory battery consisted of measurements of nasal/buccal air flow, pressure transducer measurements from nose, thoracic and/or abdominal effort and intercostal surface electromyography. Video monitoring has been done to check for any parasomnia events. Nocturnal oxyhemoglobin saturations were obtained by finger oximetry. Step-baer titration with positive airway pressure was utilized to control the respiratory events, if necessary. RESULTS: During the diagnostic sleep study sleep efficiency was normal 88.0%. Latency to sleep onset was prolonged to 36.5 min. Sleep architecture showed sta ge NI was extremely short 0.3%, Delta sleep was normal 25.5%, REM sleep was normal 20.7%. Respiratory channel showed 3 obstructive apneas, 0 mixed apneas, 0 central apneas, 29 hypopneas with lowest oxygen level 84%. Total apnea hypopnea index was 5.1. Heart rate was in the range between 68 and 88, average 77. EMG showed 0 periodic limb movements per hour. IMPRESSIONS: 1. Mild obstructive sleep apnea hypopnea syndrome. Patient presents with symptoms of significant excessive daytime sleepiness [place] Sleepiness Scale increased to 13. 2. No significant periodic limb movements have been documented. Please see other impressions from consultation PLAN: 1. The patient will have AutoPAP treatment for correction of respiratory abnormalities during the sleep. 2. Losing weight program. 3. Sleep hygiene with regular time in bed for at least 7-1/2 hours. 4. No driving if feeling sleepiness. 5. I will see patient for follow-up visit to evaluate clinical response on treatment, compliance with treatment and [place] adjustments related to mask fitting pressure and humidification. Thank you very much for allowing me to participate in the management of your patient. Sincerely, Hayder Magallanes MD, PhD, FAASM. Diplomat of [place] [employer], Sleep Medicine Board by [place] [employer] Staff Counselor of [facility] [place] cc: Alberto Caraballo MD
== END 2025-01-09 06:00 | disposition home or self-care (01) ==
LOC: 3 N SLEEP 19:30
PROVIDERS: ATTEND Internal Medicine
DX: G47.33 Obstructive sleep apnea (adult) (pediatric) (principal); Z88.0 Allergy status to penicillin; Z91.040 Latex allergy status
CPT/HCPCS: 95810